=== PATIENT | male | born 1940 | race Caucasian/White ===

== ENCOUNTER 2024-04-02 14:16 | Outpatient (CLI) | payer OTHER, SELFPAY ==
--- NOTE | 2024-04-02 14:30 | MR_ITS ---
[facility] [address] [facility] [address] Phone:?[phone] Fax:?[phone] Referring Physician Information: Lucian Beatty M.D. [address] [place] [address] Phone:?[phone] Fax:?[phone] Patient:Rad Hope D.O.B:?1940 Sex:?Male Phone:?[phone] [facility] MRN:?[id number] Exam Date:?04/02/2024 EXAM: MRI of the RIGHT SHOULDER, without contrast CLINICAL INFORMATION: Male, 83 years old, with shoulder pain. INDICATION: Evaluate for rotator cuff tear. PRIOR SURGERY: History of prior surgery. PLAIN FILMS: Radiographs dated 03/10/2024 COMPARISONS: No prior MRIs available. TECHNICAL INFORMATION: Using a 1.5T MR scanner and a localizing surface coil: Coronals: PD, T2, STIR Sagittals: PD, T2 Axials: PD, T2 SEDATION: None CONTRAST: None FINDINGS: Bones: Proximal humerus: No fracture. Postoperative changes of rotator cuff repair with anchors in the humeral head. No humeral Hill-Sachs or reverse Hill-Sachs lesion/impaction or contusion. Glenoid: No fracture or marrow edema/pathology. No osseous Bankart lesion. Rotator cuff and muscles/tendons: Supraspinatus: Suspected postoperative changes of supraspinatus tendon repair. There is thickening, heterogeneity, poorly defined interstitial fraying and delamination of the supraspinatus distal tendon, without retracted tendon tearing. No muscle belly atrophy. Infraspinatus: There is full-thickness, partial width tearing of the supraspinatus at the distal insertional footprint with retraction of torn tendon fibers up to the level of the medial humeral head. The posterior most fibers are intact. There is relatively prominent appearance of intramuscular edema along the visualized muscle belly and myotendinous junction in the region of tearing. No drainable fluid collection is associated, however. Teres minor: No tendinopathy, tear or atrophy. Subscapularis: Postoperative appearance of the subscapularis distal tendon. The distal tendon is attenuated with interstitial and undersurface tearing, without retracted tendon tearing identified. No muscle belly atrophy. Deltoid: No strain or atrophy. Coracoacromial arch: Acromion morphology: Postoperative appearance of acromioplasty. Small osseous spurring is noted posteriorly. Acromiohumeral space: The acromiohumeral space is within normal limits. Coracohumeral space: The coracohumeral space is within normal limits. Acromioclavicular joint: Joint: Postoperative changes of acromioplasty. There is inferior prominence of the posterior distal clavicle which results in contour deformity of the underlying supraspinatus. Ligaments: Coracoclavicular ligaments are intact. Bursae: Subacromial-subdeltoid: Fluid extends into the subacromial/subdeltoid bursa, in keeping with full-thickness rotator cuff tearing. Subcoracoid: No convincing subcoracoid bursal thickening/bursitis. Biceps tendon: Long head biceps tendon is not identified within the bicipital groove or intra-articular location. Glenohumeral joint: Effusion/cyst: Small sized glenohumeral joint effusion with synovitis. Articular cartilage: Humeral head: There is full-thickness and near full-thickness chondral loss along the superomedial and superior aspect of the humeral head. Additional grade II/III chondral thinning of the central humeral head articular cartilage with minimal inferomedial humeral head osteophytosis. Glenoid: Grade III/IV chondromalacia along the superior aspect of the glenoid articular cartilage. Moderate superior glenoid osteophytosis. Loose bodies: No discrete intra-articular body within the joint. Labrum:?Circumferential degeneration, fraying, and tearing of the glenoid labrum. No other definite evidence for labral tear. No paralabral ganglion cyst is identified. Inferior glenohumeral ligament/axillary pouch:?Intact. The axillary pouch is normal in thickness and signal. No evidence of adhesive capsulitis or capsular injury. IMPRESSION: 1. Full-thickness, partial width tearing of the infraspinatus distal tendon involving precludes of the (. The torn tendon fibers are retracted to the level of the medial humeral head. 2. Postoperative changes of supraspinatus tendon repair. There is undersurface tearing and delamination of the distal tendon, without full-thickness retracted tendon tearing. 3. Suspected postoperative appearance of the subscapularis tendon repair. The tendon is attenuated with poorly defined undersurface and interstitial tearing, without full-thickness retracted tendon tearing. 4. 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 Small joint effusion with synovitis. Mild osteophytosis. 5. Nonvisualization of the long head biceps tendon may reflect proximal rupture and retraction versus surgical changes of tenotomy. 6. Circumferential degeneration, fraying, and tearing of the glenoid labrum. 7. Postoperative changes of distal clavicle excision and AC joint resection. Tiny posterior osteophytes are seen along the acromion. There is inferior prominence of the distal clavicle posteriorly which results in contour deformity of the underlying supraspinatus. KME Electronically signed on 04/05/2024 2:57:00 PM by Helen Pop M.D.
== END 2024-04-02 14:17 | disposition home or self-care (01) ==
LOC: MRI 14:17
PROVIDERS: PCP Internal Medicine; Visit Provider Orthopaedic Surgery
DX: M25.511 Pain in right shoulder (principal); S46.811A Strain of other muscles, fascia and tendons at shoulder and upper arm level, right arm, initial encounter; M19.011 Primary osteoarthritis, right shoulder; S43.491A Other sprain of right shoulder joint, initial encounter; M75.101 Unspecified rotator cuff tear or rupture of right shoulder, not specified as traumatic; M12.811 Other specific arthropathies, not elsewhere classified, right shoulder
CPT/HCPCS: 73221